=== PATIENT | female | born 1970 | race American Indian/Alaskan Native ===

== ENCOUNTER 2018-06-02 16:01 | Emergency (ER) | payer OTHER ==
[2018-06-02 16:28] VITALS: BMI 42.0
[2018-06-02 16:34] VITALS: RESP 18
--- NOTE | 2018-06-02 17:07 | ED PDOC ---
Arrival/HPI - General Chief Complaint: Lower Extremity Problem/Injury Time Seen by Provider: 06/02/18 16:06 Historian: Patient - History of Present Illness Narrative History of Present Illness (Text): 06/02/18 17:04 48 y/o female, pmh including dm/htn, nkda, c/o lt. foot toe pain started about 24 hours ago with no fall or trauma. Aching pain, associated with redness, no cut on the toe, no numbness or tingling, no numbness or tingling, no calf pain, no other medical or psychological complaints. Pt. admits that she has been eating more red meat than usual for the past couple days. Past Medical History - Provider Review Nursing Documentation Reviewed: Yes - Infectious Disease Hx of Infectious Diseases: None - Cardiac Hx Cardiac Disorders: Yes Hx Hypertension: Yes - Pulmonary Hx Respiratory Disorders: No - Neurological Hx Neurological Disorder: No - HEENT Hx HEENT Disorder: Yes Other/Comment: Wears Glasses - Renal Hx Renal Disorder: No - Endocrine/Metabolic Hx Endocrine Disorders: Yes Hx Diabetes Mellitus Type 2: Yes Hx Hypothyroidism: Yes - Hematological/Oncological Hx Blood Disorders: No - Integumentary Hx Dermatological Disorder: No - Musculoskeletal/Rheumatological Hx Musculoskeletal Disorders: No - Gastrointestinal Hx Gastrointestinal Disorders: No - Genitourinary/Gynecological Hx Genitourinary Disorders: No - Psychiatric Hx Psychophysiologic Disorder: No Hx Substance Use: No Family/Social History - Physician Review Nursing Documentation Reviewed: Yes Family/Social History: Unknown Family HX Smoking Status: Light Smoker < 10 Cigarettes Daily Hx Alcohol Use: No Hx Substance Use: No Allergies/Home Meds Allergies/Adverse Reactions: Allergies No Known Allergies Allergy (Verified 06/02/18 16:27) Home Medications: Home Meds Medication Instructions Recorded Confirmed Glimepiride [amaRYL] 4 mg PO BID 06/02/18 06/02/18 Levothyroxine [Synthroid] 25 mcg PO DAILY 06/02/18 06/02/18 Lisinopril [Zestril] 20 mg PO DAILY 06/02/18 06/02/18 Verapamil [Calan SR Tab] 240 mg PO DAILY 06/02/18 06/02/18 metFORMIN [glucOPHAGE] 500 mg PO BID 06/02/18 06/02/18 Review of Systems - Review of Systems Constitutional: absent: Fatigue, Fevers Eyes: absent: Vision Changes ENT: absent: Hearing Changes Respiratory: absent: SOB, Cough Cardiovascular: absent: Chest Pain Gastrointestinal: absent: Abdominal Pain, Nausea, Vomiting Musculoskeletal: Arthralgias, Joint Swelling. absent: Back Pain, Neck Pain, Myalgias Skin: absent: Rash, Pruritis, Skin Lesions, Laceration, Abscess, Ulcer Neurological: absent: Headache, Dizziness Psychiatric: absent: Anxiety, Depression Physical Exam Vital Signs Reviewed: Yes Vital Signs Temp Pulse Resp BP Pulse Ox 06/02/18 16:31 98.1 F 80 18 137/77 97 Temperature: Afebrile Blood Pressure: Normal Pulse: Regular Respiratory Rate: Normal Appearance: Positive for: Well-Appearing, Non-Toxic, Comfortable Pain Distress: Severe Mental Status: Positive for: Alert and Oriented X 3 - Systems Exam Head: Present: Atraumatic, Normocephalic Pupils: Present: PERRL Extroacular Muscles: Present: EOMI Conjunctiva: Present: Normal Mouth: Present: Moist Mucous Membranes Neck: Present: Normal Range of Motion Respiratory/Chest: Present: Clear to Auscultation, Good Air Exchange. No: Respiratory Distress, Accessory Muscle Use Cardiovascular: Present: Regular Rate and Rhythm, Normal S1, S2. No: Murmurs Abdomen: No: Tenderness, Distention, Peritoneal Signs Back: Present: Normal Inspection Upper Extremity: Present: Normal Inspection. No: Cyanosis, Edema Lower Extremity: Present: Normal Inspection, Other (Lt. foot: +ttp with mild swelling and erythematous on the 1st metatarsal joint with skin intact, no laceration or abrasion, FROM without limitation, sensation intact, motor 5/5, + DPPT pulses, capillary refill< 2 seconds, neurovascular intact. ). No: Edema Neurological: Present: GCS=15, CN II-XII Intact, Speech Normal Skin: Present: Warm, Dry, Normal Color. No: Rashes Psychiatric: Present: Alert, Oriented x 3, Normal Insight, Normal Concentration Medical Decision Making ED Course and Treatment: 06/02/18 17:06 Differential: cellulitis vs. gout vs. arthritis -labs -toradol/colchicine -observe and reassess 06/02/18 20:05 -Urine hcg is negative. -Labs are non-significant except hyperglycemia 310s, poorly controlled DM, no signs of DKA, IVF ordered -Pain relief with colchicine and erythematous is resolving, another 0.6mg colchine ordered. 06/02/18 21:03 -Pt. rt. foot toe redness significant reduced, unlike cellulitis since it respond with colchicine and nsaids with history of red meat eating history for the past 3 days. -Pt. is walking now with much less pain, request to be discharged home. -FS 255 now after 750cc of fluid. -Discharge home with colchicine, indocin, bactrim ds, avoid seafood/alcohol/red meat, bed rest, stay hydrated, follow up with your own pmd and distributing clerk within 2 days, return to the ER for any new or worsening signs or symptoms. - Lab Interpretations Lab Results: 06/02/18 17:18 06/02/18 17:18 Lab Results 06/02/18 18:15: POC Glucose (mg/dL) 319 H 06/02/18 17:18: WBC 8.3, RBC 4.34, Hgb 11.8 L, Hct 35.6 L, MCV 82.0, MCH 27.2, MCHC 33.1, RDW 13.8, Plt Count 298, MPV 9.3, Gran % 65.2, Lymph % (Auto) 28.5, [place] % (Auto) 5.8, Eos % (Auto) 0.4 L, Baso % (Auto) 0.1, Gran # 5.41, Lymph # ( Auto) 2.4, [place] # (Auto) 0.5, Eos # (Auto) 0.0, Baso # (Auto) 0.01 06/02/18 17:18: Sodium 139, Potassium 4.1, Chloride 105, Carbon Dioxide 22, Anion Gap 16, BUN 9, Creatinine 0.6 L, Est GFR ( Amer) > 60, Est GFR (Non -Af Amer) > 60, Random Glucose 310 H*, Uric Acid 5.8, Calcium 9.2, Total Bilirubin 0.3, AST 18, ALT 21, Alkaline Phosphatase 94, Total Protein 7.0, Albumin 3.8, Globulin 3.2, Albumin/Globulin Ratio 1.2 - Medication Orders Current Medication Orders: Discontinued Medications Colchicine (Colocrys) 1.2 mg PO STAT STA Stop: 06/02/18 17:05 Last Admin: 06/02/18 17:39 Dose: 1.2 mg Colchicine (Colocrys) 0.6 mg PO STAT STA Stop: 06/02/18 18:56 Last Admin: 06/02/18 20:08 Dose: 0.6 mg Sodium Chloride (Sodium Chloride 0.9%) 1,000 mls @ 999 mls/hr IV .Q1H1M STA Stop: 06/02/18 19:04 Last Admin: 06/02/18 19:08 Dose: 999 mls/hr eMAR Start Stop Document 06/02/18 19:08 HI (Rec: 06/02/18 19:08 HI [facility] [id number]) Intravenous Solution Start Date 06/02/18 Start Time 19:08 Ketorolac Tromethamine (Toradol) 60 mg IM STAT STA Stop: 06/02/18 17:05 Last Admin: 06/02/18 17:39 Dose: 60 mg MAR Pain Assessment Document 06/02/18 17:39 HI (Rec: 06/02/18 17:49 HI [facility] [id number] Pain Reassessment Is this a pain reassessment? No Sleep Is patient sleeping during reassessment? No Presence of Pain Presence of Pain Yes Pain Scale Used Pain Scale Used Numeric Location Left, Right or Bilateral Left Pain Location Body Site Foot IM Administration Charges Document 06/02/18 17:39 HI (Rec: 06/02/18 17:49 HI [facility] [id number]) Injection Site MAR Injection Site Left Gluteus Paul Charges for Administration # of IM Administrations 1 Re-Assess: MAR Pain Assessment Document 06/02/18 18:39 HI (Rec: 06/02/18 18:51 HI [facility] [id number]) Pain Reassessment Is this a pain reassessment? Yes Sleep Is patient sleeping during reassessment? No Presence of Pain Presence of Pain No - PA / [employer] TECHNICIAN / Resident Statement /DO has reviewed & agrees with the documentation as recorded. Disposition/Present on Arrival - Present on Arrival Any Indicators Present on Arrival: No History of DVT/PE: No History of Uncontrolled Diabetes: No Urinary Catheter: No History of Decub. Ulcer: No History Surgical Site Infection Following: None - Disposition Have Diagnosis and Disposition been Completed?: Yes Diagnosis: Gouty arthritis, Toe pain Disposition: HOME/ ROUTINE Disposition Time: 17:07 Patient Plan: Discharge Patient Problems: Current Active Problems Problem Status Onset Gouty arthritis Acute Toe pain Acute Condition: IMPROVED Additional Instructions: Discharge home with colchicine, indocin, bactrim ds, avoid seafood/alcohol/red meat, bed rest, stay hydrated, follow up with your own pmd and distributing clerk within 2 days, return to the ER for any new or worsening signs or symptoms. Prescriptions: Colchicine 0.6 mg PO BID #8 cap Indomethacin [Indocin] 50 mg PO TID #30 cap Sulfamethoxazole/Trimethoprim [Bactrim Ds Tablet] 1 each PO BID #14 tablet Referrals: Renzo Solorzano DPM [Staff Provider] - Follow up with primary Forms: WORK NOTE
[2018-06-02 17:43] LABS: BASO # 0.01 K/mm3 (0.0-2.0); BASO % 0.1 % (0.0-3.0); EOS % 0.4 % (1.5-5.0); GRAN # 5.41 (1.4-6.5); GRAN % 65.2 % (50.0-68.0); HEMOGLOBIN 11.8 g/dL (12.0-16.0); LYMPH # 2.4 (1.2-3.4); LYMPH % 28.5 % (22.0-35.0); MEAN CORPUSCULAR HEMOGLOBIN 27.2 pg (25.0-35.0); MEAN CORPUSCULAR HGB CONC 33.1 g/dl (31.0-37.0); MEAN PLATELET VOLUME 9.3 fl (7.0-11.0); MONO # 0.5 (0.1-0.6); MONO % 5.8 % (1.0-6.0); RBC 4.34 10^6/uL (3.5-6.1); RED CELL DISTRIBUTION WIDTH 13.8 % (11.5-14.5); WHITE BLOOD COUNT 8.3 10^3/ul (4.5-11.0)
[2018-06-02 18:01] LABS: ALB/GLOB RATIO 1.2 (1.1-1.8); ALBUMIN 3.8 g/dL (3.0-4.8); ALT/SGPT 21 U/L (7-56); AST/SGOT 18 U/L (14-36); BLOOD UREA NITROGEN 9 mg/dL (7-21); CALCIUM 9.2 mg/dL (8.4-10.5); GFR AFRICAN-AMERICAN > 60; GFR NON-AFRICAN AMERICAN > 60; URIC ACID 5.8 mg/dL (2.5-6.2)
[2018-06-02] MEDS ORDERED: Sodium Chloride 0.9% 1,000 ML IV STA (18:04)
[2018-06-02 21:29] VITALS: BP 142/76; PULSE 71; TEMP 98.4; O2SAT 98
== END 2018-06-02 21:29 | disposition home or self-care (01) ==
LOC: ED 16:01
DX: M79.675 Pain in left toe(s) (principal); M10.9 Gout, unspecified; E11.9 Type 2 diabetes mellitus without complications; I10 Essential (primary) hypertension; F17.210 Nicotine dependence, cigarettes, uncomplicated; E03.9 Hypothyroidism, unspecified; Z79.84 Long term (current) use of oral hypoglycemic drugs
CPT/HCPCS: 80053; 82948; 84550; 85025; 96372; 99284; J1885; J7030

== ENCOUNTER 2018-09-21 23:19 | Emergency (ER) | payer SELFPAY ==
[2018-09-21 23:20] VITALS: BMI 42.0
[2018-09-21] MEDS ORDERED: Sodium Chloride 0.9% 1,000 ML IV STA (23:40)
--- NOTE | 2018-09-21 23:47 | ED PDOC ---
Arrival/HPI - General Chief Complaint: High Blood Sugar Historian: Patient - History of Present Illness Narrative History of Present Illness (Text): 09/21/18 23:40 48yo female with pmhx of hypertension and NIDDM who present with complaint of elevated blood pressure and BS. States she knew her sugar is high because she has been having polyuria. Also reports mild headache which she typically get whenever her BP is elevated. States she have not taken any medication for two weeks now, because she don't have insurance currently. She denies chest pain, SOB, diaphoresis, focal weakness, abdominal pain, dizziness, visual changes, slurred speech, nausea, vomiting, any other complaint. Past Medical History - Provider Review Nursing Documentation Reviewed: Yes - Infectious Disease Hx of Infectious Diseases: None - Cardiac Hx Cardiac Disorders: Yes Hx Hypertension: Yes - Pulmonary Hx Respiratory Disorders: No - Neurological Hx Neurological Disorder: No - HEENT Hx HEENT Disorder: Yes Other/Comment: Wears Glasses - Renal Hx Renal Disorder: No - Endocrine/Metabolic Hx Endocrine Disorders: Yes Hx Diabetes Mellitus Type 2: Yes Hx Hypothyroidism: Yes - Hematological/Oncological Hx Blood Disorders: No - Integumentary Hx Dermatological Disorder: No - Musculoskeletal/Rheumatological Hx Musculoskeletal Disorders: No - Gastrointestinal Hx Gastrointestinal Disorders: No - Genitourinary/Gynecological Hx Genitourinary Disorders: No - Psychiatric Hx Psychophysiologic Disorder: No Hx Substance Use: No Family/Social History - Physician Review Nursing Documentation Reviewed: Yes Family/Social History: Unknown Family HX Smoking Status: Light Smoker < 10 Cigarettes Daily Hx Alcohol Use: No Hx Substance Use: No Allergies/Home Meds Allergies/Adverse Reactions: Allergies No Known Allergies Allergy (Verified 06/02/18 16:27) Home Medications: Home Meds Medication Instructions Recorded Confirmed Glimepiride [amaRYL] 4 mg PO BID 06/02/18 06/02/18 Levothyroxine [Synthroid] 25 mcg PO DAILY 06/02/18 06/02/18 Lisinopril [Zestril] 20 mg PO DAILY 06/02/18 06/02/18 Verapamil [Calan SR Tab] 240 mg PO DAILY 06/02/18 06/02/18 metFORMIN [glucOPHAGE] 500 mg PO BID 06/02/18 06/02/18 Review of Systems - Physician Review All systems were reviewed & negative as marked: Yes - Review of Systems Constitutional: Normal Eyes: Normal ENT: Normal Respiratory: Normal Cardiovascular: Normal Gastrointestinal: Normal Genitourinary Female: Normal Musculoskeletal: Normal Skin: Normal Neurological: Headache Endocrine: Polyuria Hemo/Lymphatic: Normal Psychiatric: Normal Physical Exam Vital Signs Reviewed: Yes Vital Signs Temp Pulse Resp BP Pulse Ox 09/21/18 23:31 98.7 F 93 H 18 187/121 H 97 Temperature: Afebrile Blood Pressure: Hypertensive Pulse: Regular Respiratory Rate: Normal Appearance: Positive for: Well-Appearing, Non-Toxic, Comfortable Pain Distress: None Mental Status: Positive for: Alert and Oriented X 3 - Systems Exam Head: Present: Atraumatic, Normocephalic Pupils: Present: PERRL Extroacular Muscles: Present: EOMI Conjunctiva: Present: Normal Mouth: Present: Moist Mucous Membranes Neck: Present: Normal Range of Motion Respiratory/Chest: Present: Clear to Auscultation, Good Air Exchange. No: Respiratory Distress, Accessory Muscle Use Cardiovascular: Present: Regular Rate and Rhythm, Normal S1, S2. No: Murmurs Abdomen: No: Tenderness, Distention, Peritoneal Signs Back: Present: Normal Inspection Upper Extremity: Present: Normal Inspection. No: Cyanosis, Edema Lower Extremity: Present: Normal Inspection. No: Edema Neurological: Present: GCS=15, CN II-XII Intact, Speech Normal Skin: Present: Warm, Dry, Normal Color. No: Rashes Psychiatric: Present: Alert, Oriented x 3, Normal Insight, Normal Concentration Medical Decision Making ED Course and Treatment: 09/22/18 01:42 PT presented to ED for stated history. She was neurologically intact. Only complained of mild headache and polyuria. Labs 1L NS, Insulin, Hydralazine EKG EKG NSR 82bpm N-STEMI Lab was unremarkable with exception of the BS of 512. Repeat FS s/p medication and hydration was 296. Another liter was ordered Pt's BP improved with medication she remained neurologically intact in ED. Rx of Verampamil, Lisinopril, Glimperide and Metformin was given She was advised to f/u with the clinic. TRT ED for any new or worsening symptoms. Disposition/Present on Arrival - Present on Arrival Any Indicators Present on Arrival: No History of DVT/PE: No History of Uncontrolled Diabetes: Yes Urinary Catheter: No History of Decub. Ulcer: No History Surgical Site Infection Following: None - Disposition Have Diagnosis and Disposition been Completed?: Yes Diagnosis: Hypertension, Hyperglycemia Disposition: HOME/ ROUTINE Disposition Time: 02:00 Patient Plan: Discharge Patient Problems: Current Active Problems Problem Status Onset Hyperglycemia Acute Hypertension Acute Condition: STABLE Discharge Instructions (ExitCare): High Blood Pressure in Adults, Hyperglycemia, Adult Additional Instructions: Take medication as directed Follow up with the clinic Return to ED for any new symptoms Prescriptions: Glimepiride [amaRYL] 4 mg PO BID #40 tab Lisinopril [Zestril] 20 mg PO DAILY #20 tab metFORMIN [glucOPHAGE] 500 mg PO BID #40 tab Verapamil [Calan SR Tab] 240 mg PO DAILY #20 tab Referrals: Mary Beth Miller MD [Medical Doctor] - Follow up with primary [facility] [place] - Follow up with primary [facility] [Outside] - Follow up with primary Forms: [employer] (Filipino)
[2018-09-21] MEDS ORDERED: Insulin Reg-MEDIUM-Coverage IV STA (23:48)
[2018-09-22] MEDS ORDERED: Insulin Regular 1 UNITS/0.01 ML ML ONE (00:03)
[2018-09-22 00:25] LABS: BASO # 0.02 K/mm3 (0.0-2.0); BASO % 0.3 % (0.0-3.0); EOS # 0.1 (0.0-0.7); EOS % 0.7 % (1.5-5.0); GRAN # 4.03 (1.4-6.5); GRAN % 57.6 % (50.0-68.0); HEMOGLOBIN 13.1 g/dL (12.0-16.0); LYMPH # 2.5 (1.2-3.4); LYMPH % 36.1 % (22.0-35.0); MEAN CORPUSCULAR HEMOGLOBIN 27.9 pg (25.0-35.0); MEAN CORPUSCULAR HGB CONC 33.2 g/dl (31.0-37.0); MEAN PLATELET VOLUME 9.7 fl (7.0-11.0); MONO # 0.4 (0.1-0.6); MONO % 5.3 % (1.0-6.0); RBC 4.7 10^6/uL (3.5-6.1); RED CELL DISTRIBUTION WIDTH 13.8 % (11.5-14.5)
[2018-09-22 00:37] LABS: ALB/GLOB RATIO 1.2 (1.1-1.8); ALBUMIN 4.2 g/dL (3.0-4.8); ALT/SGPT 20 U/L (7-56); AST/SGOT 25 U/L (14-36); BLOOD UREA NITROGEN 13 mg/dL (7-21); CALCIUM 9.9 mg/dL (8.4-10.5); GFR NON-AFRICAN AMERICAN > 60
[2018-09-22 00:39] LABS: INR 0.96; PROTHROMBIN TIME 10.9 SECONDS (9.4-12.5)
[2018-09-22 00:40] LABS: URINE BILIRUBIN NEGATIVE (NEGATIVE); URINE BLOOD NEGATIVE (NEGATIVE); URINE GLUCOSE (UA) >=1000 mg/dL (NEGATIVE); URINE LEUKOCYTE ESTERASE NEGATIVE Leu/uL (NEGATIVE); URINE PROTEIN NEGATIVE mg/dL (<30 mg/dL); URINE UROBILINOGEN 0.2 E.U./dL (<1 E.U./dL)
[2018-09-22 00:40] LABS: PARTIAL THROMBOPLASTIN TIME 23.7 Seconds (25.1-36.5)
[2018-09-22 00:43] LABS: TROPONIN I < 0.01 ng/mL
[2018-09-22 00:44] LABS: URINE APPEARANCE CLEAR (CLEAR); URINE COLOR STRAW (YELLOW)
[2018-09-22 00:48] LABS: CK-MB 1.2 ng/mL (0.0-3.6)
[2018-09-22] MEDS ORDERED: Sodium Chloride 0.9% 1,000 ML IV STA (00:52)
[2018-09-22 02:13] VITALS: TEMP 98.6
[2018-09-22 03:24] VITALS: BP 157/75; PULSE 80; RESP 19; O2SAT 99
--- NOTE | 2018-09-22 11:30 | CARD ---
APPROVED REPORT Date of service: 09/22/2018 EKG Measurement Heart [id number] <Conclusion> Normal sinus rhythm Cannot rule out small or absent R waves V1-V3, may be due to lead placement or possible septal infarct age undetermined. Abnormal ECG
== END 2018-09-22 03:23 | disposition home or self-care (01) ==
LOC: ED 23:19
DX: I10 Essential (primary) hypertension (principal); E11.65 Type 2 diabetes mellitus with hyperglycemia; F17.210 Nicotine dependence, cigarettes, uncomplicated
CPT/HCPCS: 80053; 81003; 82550; 82553; 82948; 83615; 84484; 85025; 85610; 85730; 93005; 96361; 96374; 96375; 99284; J0360; J7030

== ENCOUNTER 2019-03-10 12:53 | Emergency (ER) | payer OTHER ==
[2019-03-10 12:55] VITALS: BMI 42.0
[2019-03-10] MEDS ORDERED: Sodium Chloride 0.9% 1,000 ML IV STA (14:18)
[2019-03-10 15:16] LABS: BASO # 0.02 K/mm3 (0.0-2.0); BASO % 0.3 % (0.0-3.0); EOS % 0.2 % (1.5-5.0); HEMOGLOBIN 13.5 g/dL (12.0-16.0); LYMPH # 1.9 (1.2-3.4); LYMPH % 30.4 % (22.0-35.0); MEAN CELL VOLUME 86.1 fl (80.0-105.0); MEAN CORPUSCULAR HEMOGLOBIN 28.4 pg (25.0-35.0); MEAN CORPUSCULAR HGB CONC 32.9 g/dl (31.0-37.0); MEAN PLATELET VOLUME 9.6 fl (7.0-11.0); MONO # 0.3 (0.1-0.6); RBC 4.76 10^6/uL (3.5-6.1); RED CELL DISTRIBUTION WIDTH 13.3 % (11.5-14.5); WHITE BLOOD COUNT 6.2 10^3/uL (4.5-11.0)
--- NOTE | 2019-03-10 15:17 | ED PDOC ---
Arrival/HPI - General Chief Complaint: Abdominal Pain Time Seen by Provider: 03/10/19 12:58 Historian: Patient - History of Present Illness Narrative History of Present Illness (Text): 03/10/19 18:27 48-year-old female presents today with a 3-day history of left-sided abdominal pain. Patient denies nausea vomiting diarrhea or constipation. She denies any urinary symptoms. Patient states she has a history of ovarian cyst that she had removed approximately 1 year ago. Patient denies chest pain or shortness of breath. Patient states occasionally the pain radiates to the back only on the left side. Patient denies numbness weakness or tingling in the extremities. No headaches or dizziness. No other complaints. Past Medical History - Provider Review Nursing Documentation Reviewed: Yes - Travel History Have you recently traveled outside [place] w/in the past 3 mons?: No - Infectious Disease Hx of Infectious Diseases: None - Reproductive Menopause: No - Cardiac Hx Cardiac Disorders: Yes Hx Hypertension: Yes - Pulmonary Hx Respiratory Disorders: No - Neurological Hx Neurological Disorder: No - HEENT Hx HEENT Disorder: Yes Other/Comment: Wears Glasses - Renal Hx Renal Disorder: No - Endocrine/Metabolic Hx Endocrine Disorders: Yes Hx Diabetes Mellitus Type 2: Yes Hx Hypothyroidism: Yes - Hematological/Oncological Hx Blood Disorders: No - Integumentary Hx Dermatological Disorder: No - Musculoskeletal/Rheumatological Hx Musculoskeletal Disorders: No - Gastrointestinal Hx Gastrointestinal Disorders: No - Genitourinary/Gynecological Hx Genitourinary Disorders: No - Psychiatric Hx Psychophysiologic Disorder: No Hx Substance Use: No - Anesthesia Hx Anesthesia: No Hx Anesthesia Reactions: No Hx Malignant Hyperthermia: No Family/Social History - Physician Review Nursing Documentation Reviewed: Yes Family/Social History: Unknown Family HX Smoking Status: Light Smoker < 10 Cigarettes Daily Hx Alcohol Use: No Hx Substance Use: No Allergies/Home Meds Allergies/Adverse Reactions: Allergies No Known Allergies Allergy (Verified 06/02/18 16:27) Home Medications: Home Meds Medication Instructions Recorded Confirmed Glimepiride [amaRYL] 4 mg PO BID 06/02/18 06/02/18 Levothyroxine [Synthroid] 25 mcg PO DAILY 06/02/18 06/02/18 Lisinopril [Zestril] 20 mg PO DAILY 06/02/18 06/02/18 Verapamil [Calan SR Tab] 240 mg PO DAILY 06/02/18 06/02/18 metFORMIN [glucOPHAGE] 500 mg PO BID 06/02/18 06/02/18 Review of Systems - Review of Systems Constitutional: absent: Fatigue, Fevers Respiratory: absent: SOB, Cough Cardiovascular: absent: Chest Pain, Palpitations Gastrointestinal: Abdominal Pain. absent: Constipation, Diarrhea, Nausea, Vomiting Genitourinary Female: absent: Dysuria, Frequency, Hematuria, Vaginal Bleeding, Vaginal Discharge Musculoskeletal: absent: Arthralgias, Back Pain, Neck Pain Skin: absent: Rash, Pruritis Neurological: absent: Headache, Dizziness Psychiatric: absent: Anxiety, Depression, Suicidal Ideation Physical Exam Vital Signs Reviewed: Yes Vital Signs Temp Pulse Resp BP Pulse Ox 03/10/19 14:55 98.1 F 78 18 178/92 H 98 03/10/19 12:55 98.2 F 89 16 177/90 H 100 Temperature: Afebrile Blood Pressure: Hypertensive Pulse: Regular Respiratory Rate: Normal Appearance: Positive for: Well-Appearing, Non-Toxic, Comfortable Pain Distress: None Mental Status: Positive for: Alert and Oriented X 3 - Systems Exam Head: Present: Atraumatic Mouth: Present: Moist Mucous Membranes Neck: Present: Normal Range of Motion Respiratory/Chest: Present: Clear to Auscultation, Good Air Exchange. No: Respiratory Distress, Accessory Muscle Use Cardiovascular: Present: Regular Rate and Rhythm, Normal S1, S2. No: Murmurs Abdomen: Present: Tenderness (+ LLQ abd tenderness; ), Normal Bowel Sounds. No: Distention, Peritoneal Signs, Rebound, Guarding Back: Present: Normal Inspection. No: CVA Tenderness, Midline Tenderness, Paraspinal Tenderness Upper Extremity: Present: Normal ROM Neurological: Present: GCS=15, Speech Normal Skin: Present: Warm, Dry, Normal Color. No: Rashes Psychiatric: Present: Alert, Oriented x 3 Medical Decision Making ED Course and Treatment: 03/10/19 16:49 pt with hx of DM, HTN with left sided abd pain x 3 days. cbc; wnl cmp; glucose; 451 pt given 1L NS iv bolus. UA; + glucose US: FINDINGS: UTERUS: Prior hysterectomy. No uterine remnant identified. CERVIX: No cervical abnormality identified. RIGHT OVARY: Not visible. LEFT OVARY: Complex, septated primarily cystic mass 6.6 x 4.1 x 6.6 cm. Findings are suspicious for primary neoplasm of the left ovary. FREE FLUID: No significant free fluid noted. OTHER FINDINGS: None. IMPRESSION: Cystic septated mass occupying the entire left adnexal region measures 6.6 x 4.1 x 6.6 cm. The finding is suspicious for neoplasm. Communication of results: I discussed findings with the physician speech language pathologist assistant in the emergency department at 15:30. CT ordered; pt is pending to go to CT. I discussed the ultrasound results in depth with the patient. I have advised the patient of a left adnexal mass suspicious for neoplasm. Patient states her family has a history of breast cancer but denies a history of ovarian cancer. Patient states she cannot stay in the hospital as she has to take care of her sick aunt. Patient states she will return tomorrow to the emergency room. I advised the patient that we need to do a CAT scan for further evaluation of her left-sided abdominal pain. I have advised the patient that her sugar is elevated. Patient states she ran out of her metformin and her doctors on vacation so I will give a prescription for metformin. I had a long in-depth conversation with the patient regarding the severity of the ultrasound findings and need for immediate follow-up. Patient verbalized understanding I have given the patient a copy of her ultrasound report so that she can bring it to her pipe finisher. Patient states her pipe finisher is located in [facility] Patient has been advised to not leave the emergency room but has decided to go AGAINST MEDICAL ADVICE. The patient possesses capacity to make decisions and has voiced understanding to all my warnings of potential worsening of the condition for which medical care was sought. I have discussed all known and potential risks and consequences to the patient leaving AGAINST MEDICAL ADVICE. Patient is leaving against medical advise. AMA form signed. witness by JUAN M Walter Impression; ovarian mass, hyperglycemia, abdominal pain Please return if you wish to continue your care Follow-up with a pipe finisher within the next 2 days regarding your ultrasound which shows an ovarian mass on the left side Follow-up with the primary care physician regarding your high blood sugar Return immediately if symptoms worsen persist or if new concerning symptoms develop - RAD Interpretation Radiology Orders: 03/10/19 14:18 ABD & PELVIS IV CONTRAST ONLY [CT] Stat TRANSVAGINAL [US] Stat - Medication Orders Current Medication Orders: Sodium Chloride (Sodium Chloride 0.9%) 1,000 mls @ 999 mls/hr IV .Q1H1M STA Stop: 03/10/19 15:18 Discontinued Medications Ketorolac Tromethamine (Toradol) 30 mg IVP STAT STA Stop: 03/10/19 14:19 Disposition/Present on Arrival - Present on Arrival Any Indicators Present on Arrival: Yes History of DVT/PE: No History of Uncontrolled Diabetes: Yes Urinary Catheter: No History of Decub. Ulcer: No History Surgical Site Infection Following: None - Disposition Have Diagnosis and Disposition been Completed?: Yes Diagnosis: Mass of left ovary, Hyperglycemia, Abdominal pain Disposition: AGAINST MEDICAL ADVICE Disposition Time: 16:44 Patient Plan: Other (AMA) Condition: GUARDED Discharge Instructions (ExitCare): Blood Glucose Monitoring, Acute Abdomen (Belly Pain), Adult (DC), Ovarian Cancer (DC), Hyperglycemia, Adult (DC) Additional Instructions: Please return if you wish to continue your care Follow-up with a pipe finisher within the next 2 days regarding your ultrasound which shows an ovarian mass on the left side Follow-up with the primary care physician regarding your high blood sugar Return immediately if symptoms worsen persist or if new concerning symptoms develop Prescriptions: metFORMIN [glucOPHAGE] 500 mg PO BID #30 tab Referrals: Alo Larson MD [Staff Provider] - Follow up with primary Mary Beth Miller MD [Medical Doctor] - Follow up with primary [facility] [Outside] - [facility] [Outside[facility] - [facility] - Follow up with primary Haroon Reich MD [Medical Doctor] - Follow up with primary Forms: [employer] ([place] Islander), WORK NOTE
[2019-03-10 15:24] LABS: URINE BILIRUBIN NEGATIVE (NEGATIVE); URINE BLOOD NEGATIVE (NEGATIVE); URINE GLUCOSE (UA) >=1000 mg/dL (NEGATIVE); URINE LEUKOCYTE ESTERASE NEGATIVE Leu/uL (NEGATIVE); URINE PROTEIN NEGATIVE mg/dL (<30 mg/dL); URINE UROBILINOGEN 0.2 E.U./dL (<1 E.U./dL)
[2019-03-10 15:25] LABS: URINE APPEARANCE CLEAR (CLEAR); URINE COLOR YELLOW (YELLOW)
--- NOTE | 2019-03-10 15:36 | US ---
Date of service: 03/10/2019 HISTORY: left sided pain; hx of cyst Relevant surgical history: Unspecified pelvic-ovarian surgery several months ago. Information provided by the physician anesthesiologist assistant. COMPARISON: None available. TECHNIQUE: FINDINGS: UTERUS: Prior hysterectomy. No uterine remnant identified. CERVIX: No cervical abnormality identified. RIGHT OVARY: Not visible. LEFT OVARY: Complex, septated primarily cystic mass 6.6 x 4.1 x 6.6 cm. Findings are suspicious for primary neoplasm of the left ovary. FREE FLUID: No significant free fluid noted. OTHER FINDINGS: None. IMPRESSION: Cystic septated mass occupying the entire left adnexal region measures 6.6 x 4.1 x 6.6 cm. The finding is suspicious for neoplasm. Communication of results: I discussed findings with the physician anesthesiologist assistant in the emergency department at 15:30.
[2019-03-10 15:46] LABS: ALB/GLOB RATIO 1.2 (1.1-1.8); ALBUMIN 4.1 g/dL (3.0-4.8); ALT/SGPT < 6 U/L (7-56); AST/SGOT 22 U/L (14-36); BLOOD UREA NITROGEN 11 mg/dL (7-21); CALCIUM 9.6 mg/dL (8.4-10.5); GFR NON-AFRICAN AMERICAN > 60; LIPASE 233 U/L (23-300)
[2019-03-10 16:31] VITALS: TEMP 98.2; O2SAT 100
[2019-03-10 17:02] VITALS: BP 168/81; PULSE 71; RESP 18
== END 2019-03-10 17:02 | disposition left against medical advice (07) ==
LOC: ED 12:53
DX: E11.65 Type 2 diabetes mellitus with hyperglycemia (principal); N83.9 Noninflammatory disorder of ovary, fallopian tube and broad ligament, unspecified; I10 Essential (primary) hypertension; F17.210 Nicotine dependence, cigarettes, uncomplicated
CPT/HCPCS: 76830; 80053; 81003; 82948; 83690; 85025; 87086; 96361; 96374; 99285; J1885; J7030

== ENCOUNTER 2019-03-11 09:23 | Emergency (ER) | payer OTHER ==
[2019-03-11 09:24] VITALS: BMI 42.0
[2019-03-11 09:34] VITALS: RESP 18
--- NOTE | 2019-03-11 10:20 | ED PDOC ---
Arrival/HPI - General Chief Complaint: Abdominal Pain Historian: Patient - History of Present Illness Narrative History of Present Illness (Text): 03/11/19 10:16 48 y/o female, pmh including htn/hld/dm/hypothyroidism, nkda, c/o lt. lower quadrant abdominal pain on and off x 3 days. Pt. stated that she has no nausea/vomiting/diarrhea, eating and drinking well, had sonogram yesterday and show there is cystic septated mass occupying the entire left adnexal region measures 6.6x4.1x6.6cm and concerning for neoplasm which the patient has scheduled to see the obgyn and she understood the diagnosis. Pt. stated that the pain is much less than yesterday, pain well control with pain medication, no fever or chills, no change in energy level or appetite, no other medical or psychological complaints. Past Medical History - Provider Review Nursing Documentation Reviewed: Yes - Infectious Disease Hx of Infectious Diseases: None - Reproductive Menopause: No - Cardiac Hx Cardiac Disorders: Yes Hx Hypertension: Yes - Pulmonary Hx Respiratory Disorders: No - Neurological Hx Neurological Disorder: No - HEENT Hx HEENT Disorder: Yes Other/Comment: Wears Glasses - Renal Hx Renal Disorder: No - Endocrine/Metabolic Hx Endocrine Disorders: Yes Hx Diabetes Mellitus Type 2: Yes Hx Hypothyroidism: Yes - Hematological/Oncological Hx Blood Disorders: No - Integumentary Hx Dermatological Disorder: No - Musculoskeletal/Rheumatological Hx Musculoskeletal Disorders: No - Gastrointestinal Hx Gastrointestinal Disorders: No - Genitourinary/Gynecological Hx Genitourinary Disorders: No - Psychiatric Hx Psychophysiologic Disorder: No Hx Substance Use: No - Anesthesia Hx Anesthesia: No Hx Anesthesia Reactions: No Hx Malignant Hyperthermia: No Family/Social History - Physician Review Nursing Documentation Reviewed: Yes Family/Social History: Unknown Family HX Smoking Status: Light Smoker < 10 Cigarettes Daily Hx Alcohol Use: No Hx Substance Use: No Allergies/Home Meds Allergies/Adverse Reactions: Allergies No Known Allergies Allergy (Verified 06/02/18 16:27) Home Medications: Home Meds Medication Instructions Recorded Confirmed Levothyroxine [Synthroid] 25 mcg PO DAILY 06/02/18 03/11/19 Review of Systems - Review of Systems Constitutional: absent: Fatigue, Fevers Eyes: absent: Vision Changes ENT: absent: Hearing Changes Respiratory: absent: SOB, Cough Cardiovascular: absent: Chest Pain Gastrointestinal: Abdominal Pain. absent: Nausea, Vomiting Musculoskeletal: absent: Arthralgias, Back Pain Skin: absent: Rash, Pruritis Psychiatric: absent: Anxiety, Depression, Suicidal Ideation Physical Exam Vital Signs Reviewed: Yes Vital Signs Temp Pulse Resp BP Pulse Ox 03/11/19 09:30 97.7 F 90 18 176/92 H 99 03/11/19 09:24 88 18 144/78 98 Temperature: Afebrile Blood Pressure: Normal Pulse: Regular Respiratory Rate: Normal Appearance: Positive for: Well-Appearing, Non-Toxic, Comfortable Pain Distress: None Mental Status: Positive for: Alert and Oriented X 3 - Systems Exam Head: Present: Atraumatic, Normocephalic Pupils: Present: PERRL Extroacular Muscles: Present: EOMI Conjunctiva: Present: Normal Mouth: Present: Moist Mucous Membranes Neck: Present: Normal Range of Motion Respiratory/Chest: Present: Clear to Auscultation, Good Air Exchange. No: Resp iratory Distress, Accessory Muscle Use Cardiovascular: Present: Regular Rate and Rhythm, Normal S1, S2. No: Murmurs Abdomen: Present: Tenderness (LLQ region), Normal Bowel Sounds. No: Distention, Peritoneal Signs, Rebound, Guarding, McBurney's Point Tender, Rovsing's Sign Present, Mass/Organomegaly, Scars Genitourinary/Pelvic Exam: Present: Other (Pt. declined pelvic. ) Back: Present: Normal Inspection. No: CVA Tenderness, Midline Tenderness, Paraspinal Tenderness, Pain with Leg Raise, Decubitus Ulcer Upper Extremity: Present: Normal Inspection. No: Cyanosis, Edema Lower Extremity: Present: Normal Inspection. No: Edema Neurological: Present: GCS=15, CN II-XII Intact, Speech Normal, Motor Func Grossly Intact, Normal Cerebellar Funct, Gait Normal, Memory Normal Skin: Present: Warm, Dry, Normal Color. No: Rashes Psychiatric: Present: Alert, Oriented x 3, Normal Insight, Normal Concentration Medical Decision Making ED Course and Treatment: 03/11/19 10:36 -Labs -CT abdomen and pelvis -Pt. stated that the pain improved compared to yesterday. 03/11/19 12:43 -Urine hcg is negative -Labs show no acute findings except glucose 307 (IVF ordered) -CT abdomen and pelvis 6.7 x 4.8 x 7.6 cm cystic septated mass in the left adnexa. The differential considerations include septated cyst, cystadenoma and cystadenocarcinoma. MRI of the pelvis without and with intravenous contrast is recommended for further characterization. Mild hepatomegaly and fatty liver. -I spoke to the radiologist Dr. Aguilar and request her to reviewed the sonogram transvaginal from 03/10/2019 which she reviewed and stated that there is flow to the left ovary and no signs of ovarian torsion, she recommend outpatient MRI. -I spoke to the obgyn Dr. Zeeshan Solomon, discussed about the yesterday sonogram and the labs, stated that the patient can be discharged home and outpatient follow up as he is not suspecting ovarian torsion. -Pt. is comfortable, smiling and talking on the phone, disucssed about the sonogram result, advised outpatient MRI and Obgyn follow up for this ovary mass as this can be cancerous vs cyst. Pt. verbally expressed understanding. -Case discussed with Dr. Graham, she agreed on the plan of care and dispo. -Discharge home with education on continue pain med as needed, follow up with your own pmd and obgyn within 2 days, you need further imaging with MRI as per radiologist, return to the ER for any new or worsening signs or symptoms. - RAD Interpretation Radiology Orders: -CT abdomen and pelvis Date of service: 03/11/2019 PROCEDURE: CT Abdomen and Pelvis with contrast HISTORY: LLQ pain, sono show mass lt. ovary COMPARISON: Transvaginal pelvic ultrasound from 03/10/2019. TECHNIQUE: CT scan of the abdomen and pelvis was performed after administration of intravenous contrast. Oral contrast was not administered. Coronal and sagittal reformatted images were obtained. Contrast dose: 150 mL Omnipaque 350 Radiation dose: Total exam DLP = 1096.13 mGy-cm. This CT exam was performed using one or more of the following dose reduction techniques: Automated exposure control, adjustment of the mA and/or kV according to patient size, and/or use of iterative reconstruction technique. FINDINGS: LOWER THORAX: The visualized lungs are clear. LIVER: Mild hepatomegaly and fatty liver. Normal homogeneous enhancement. No gross lesion or ductal dilatation. GALLBLADDER AND BILE DUCTS: Well distended. No calcified gallstones, wall thickening or pericholecystic fluid. PANCREAS: Normal in size with homogeneous enhancement. No gross lesion or ductal dilatation. SPLEEN: Normal in size and appearance. ADRENALS: No discrete nodule. KIDNEYS AND URETERS: Normal in size with homogeneous enhancement. No hydronephrosis. No solid mass. VASCULATURE: No aortic aneurysm. There are no aortic atherosclerotic calcifications or mural plaque present. BOWEL: Evaluation of the bowel is limited in the absence of oral contrast. The small bowel loops are normal in caliber. There is moderate amount of stool in the colon. No bowel wall thickening or obstruction. APPENDIX: Normal appendix. PERITONEUM: No free fluid. No free air. LYMPH NODES: No enlarged lymph nodes. BLADDER: Decompressed. REPRODUCTIVE: The uterus is atrophic. There is a 6.7 x 4.8 x 7.6 cm cystic septated is mass in the left adnexa. BONES: No acute fracture. Within normal limits for the patient's age. OTHER FINDINGS: There is a small fat containing inguinal hernia. IMPRESSION: 1. 6.7 x 4.8 x 7.6 cm cystic septated mass in the left adnexa. The differential considerations include septated cyst, cystadenoma and cystadenocarcinoma. MRI of the pelvis without and with intravenous contrast is recommended for further characterization. 2. Mild hepatomegaly and fatty liver. Hotel Maintenance Technician: Radiologist - PA / COAT HANGER SHAPER MACHINE OPERATOR / Resident Statement MD/DO has reviewed & agrees with the documentation as recorded. Disposition/Present on Arrival - Present on Arrival Any Indicators Present on Arrival: No History of DVT/PE: No History of Uncontrolled Diabetes: Yes Urinary Catheter: No History of Decub. Ulcer: No History Surgical Site Infection Following: None - Disposition Have Diagnosis and Disposition been Completed?: Yes Diagnosis: Ovarian mass, Hyperglycemia Disposition Time: 12:48 Patient Plan: Discharge Condition: GOOD Additional Instructions: -Discharge home with education on continue pain med as needed, follow up with your own pmd and obgyn within 2 days, you need further imaging with MRI as per radiologist, return to the ER for any new or worsening signs or symptoms. Referrals: FAMILY PROVIDER,NO [Primary Care Provider] - Follow up with primary Zeeshan Solomon MD [Staff Provider] - Follow up with primary [facility] [place]] - Follow up with primary Forms: [facility] (Indonesian), WORK NOTE
[2019-03-11 11:44] LABS: BASO # 0.01 K/mm3 (0.0-2.0); BASO % 0.2 % (0.0-3.0); EOS % 0.2 % (1.5-5.0); HEMOGLOBIN 14.2 g/dL (12.0-16.0); LYMPH # 1.6 (1.2-3.4); LYMPH % 34.3 % (22.0-35.0); MEAN CELL VOLUME 85.6 fl (80.0-105.0); MEAN CORPUSCULAR HEMOGLOBIN 28.3 pg (25.0-35.0); MEAN CORPUSCULAR HGB CONC 33.1 g/dl (31.0-37.0); MEAN PLATELET VOLUME 9.8 fl (7.0-11.0); MONO # 0.2 (0.1-0.6); RBC 5.01 10^6/uL (3.5-6.1); RED CELL DISTRIBUTION WIDTH 13.1 % (11.5-14.5); WHITE BLOOD COUNT 4.8 10^3/uL (4.5-11.0)
[2019-03-11 11:55] LABS: ALB/GLOB RATIO 1.2 (1.1-1.8); ALBUMIN 4.3 g/dL (3.0-4.8); ALT/SGPT 9 U/L (7-56); AST/SGOT 23 U/L (14-36); BLOOD UREA NITROGEN 9 mg/dL (7-21); CALCIUM 9.2 mg/dL (8.4-10.5); GFR NON-AFRICAN AMERICAN > 60
[2019-03-11] MEDS ORDERED: Sodium Chloride 0.9% 1,000 ML IV STA (12:20)
--- NOTE | 2019-03-11 12:27 | CT ---
Date of service: 03/11/2019 PROCEDURE: CT Abdomen and Pelvis with contrast HISTORY: LLQ pain, sono show mass lt. ovary COMPARISON: Transvaginal pelvic ultrasound from 03/10/2019. TECHNIQUE: CT scan of the abdomen and pelvis was performed after administration of intravenous contrast. Oral contrast was not administered. Coronal and sagittal reformatted images were obtained. Contrast dose: 150 mL Omnipaque 350 Radiation dose: Total exam DLP = 1096.13 mGy-cm. This CT exam was performed using one or more of the following dose reduction techniques: Automated exposure control, adjustment of the mA and/or kV according to patient size, and/or use of iterative reconstruction technique. FINDINGS: LOWER THORAX: The visualized lungs are clear. LIVER: Mild hepatomegaly and fatty liver. Normal homogeneous enhancement. No gross lesion or ductal dilatation. GALLBLADDER AND BILE DUCTS: Well distended. No calcified gallstones, wall thickening or pericholecystic fluid. PANCREAS: Normal in size with homogeneous enhancement. No gross lesion or ductal dilatation. SPLEEN: Normal in size and appearance. ADRENALS: No discrete nodule. KIDNEYS AND URETERS: Normal in size with homogeneous enhancement. No hydronephrosis. No solid mass. VASCULATURE: No aortic aneurysm. There are no aortic atherosclerotic calcifications or mural plaque present. BOWEL: Evaluation of the bowel is limited in the absence of oral contrast. The small bowel loops are normal in caliber. There is moderate amount of stool in the colon. No bowel wall thickening or obstruction. APPENDIX: Normal appendix. PERITONEUM: No free fluid. No free air. LYMPH NODES: No enlarged lymph nodes. BLADDER: Decompressed. REPRODUCTIVE: The uterus is atrophic. There is a 6.7 x 4.8 x 7.6 cm cystic septated is mass in the left adnexa. BONES: No acute fracture. Within normal limits for the patient's age. OTHER FINDINGS: There is a small fat containing inguinal hernia. IMPRESSION: 1. 6.7 x 4.8 x 7.6 cm cystic septated mass in the left adnexa. The differential considerations include septated cyst, cystadenoma and cystadenocarcinoma. MRI of the pelvis without and with intravenous contrast is recommended for further characterization. 2. Mild hepatomegaly and fatty liver.
[2019-03-11 14:00] VITALS: BP 146/87; PULSE 88; TEMP 98.2; O2SAT 100
== END 2019-03-11 14:03 | disposition home or self-care (01) ==
LOC: ED 09:23
DX: E11.65 Type 2 diabetes mellitus with hyperglycemia (principal); N83.9 Noninflammatory disorder of ovary, fallopian tube and broad ligament, unspecified; E03.9 Hypothyroidism, unspecified; E78.5 Hyperlipidemia, unspecified; I10 Essential (primary) hypertension; F17.210 Nicotine dependence, cigarettes, uncomplicated
CPT/HCPCS: 74177; 80053; 81025; 82948; 84703; 85025; 99284; J7030; Q9967